=== PATIENT | male | born 1935 | race Caucasian/White ===

== ENCOUNTER 2016-12-13 23:31 | Emergency (ER) | payer MEDICARE ==
[~2016-12-13 23:31] MED LIST: ACETAMINOPHEN650 M1 PO; ANUCORT-HC25 MG/SUPP PR; ASPIRIN81 MG PO; AVODART0.5 MG PO; CARVEDILOL6.25 MG PO; CELEBREX PO; CLOPIDOGREL BIS75 MG PO; COZAAR PO; DIOVAN80 M1 PO; DOC-Q-LACE100 MG PO; FLUOROMETHOLONE15 ML OP; FLUOROMETHOLONE5 ML OP; HYDROCHLOROTHIA25 MG PO; HYDROCODON-ACE1 EAC7 PO; HYTRIN PO; IMDUR-ER30 M1 PO; LIPITOR40 MG PO; LOPID600 MG PO; LORTAB 10/500 T1 TAB PO; METAMUCIL; MILK OF MAGNESIA PO; MOBIC PO; NITROGLYGERIN0.4 MG SL; PROTONIX PO; TIMOPTIC2.5 ML OP; TYLENO PO; TYLENOL #3 PO; VIT B12 PO; XALATAN OP; [UNRECOGNIZED DRUG - OTHER] PO
== END 2016-12-14 02:05 | disposition home or self-care (01) ==
LOC: CED 23:31
DX: R04.0 Epistaxis (principal); I10 Essential (primary) hypertension; Z86.73 Personal history of transient ischemic attack (TIA), and cerebral infarction without residual deficits
CPT/HCPCS: 99283

== ENCOUNTER 2017-02-08 14:03 | Inpatient (IN) | payer MEDICARE ==
[~2017-02-08] VITALS: Ht 162.6 cm; Wt 79.2 kg
--- NOTE | ~2017-02-08 | DS ---
Unit #: [id number] #: [id number] Patient: FANTASMA PATEL [id number] [facility] [address] [place], [place] [address] [id number] I MR#: [id number] NAME: FANTASMA PATEL. ROOM: [facility] Age: 81 Sex: M Admission Date: 02/08/2017 : 1935 Discharge Date: 02/13/2017 Attending Physician: Mariluz Cramer M.D. Primary Care Physician: Tucker Biggs M.D. DISCHARGE SUMMARY ADMITTING PHYSICIAN Dr. Sanchez with [facility]. ADMITTING DIAGNOSES 1. Acute upper gastrointestinal bleed. 2. Macrocytic anemia. 3. Hypertension. 4. Hyperlipidemia. 5. Coronary artery disease. 6. History of cerebrovascular accident/transient ischemic attack. 7. Salivary gland malignancy. DISCHARGE DIAGNOSES 1. 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 2. Atrial fibrillation, coronary artery disease status post stent. 3. Dysphagia with moderate protein caloric malnutrition, status post percutaneous endoscopic gastrostomy tube. 4. Salivary gland cancer, status post resection, chemotherapy and radiation, stable. 5. Immobilization syndrome. 6. History of cerebrovascular accident and transient ischemic attack. 7. Hypertension. CONSULTS 1. Dr. Nitesh Paniagua with gastroenterology. 2. Dr. Michael Calles with [facility]. PROCEDURES EGD with argon plasma coagulation treatment for a gastric AVM. HISTORY OF PRESENT ILLNESS Mr. Patel is an 81-year-old white male with history of hypertension, coronary artery disease, salivary gland cancer where he has a PEG placed as well as undergone chemo, radiation, and resection who presented with a GI bleed. HOSPITAL COURSE The patient was admitted for evaluation of a GI bleed. He was monitored closely. His hemoglobin did drop down to 7.6. He did require 2 units of packed red cells. He also was seen by gastroenterology who took him for an EGD where he was found to have a gastric AVM that required coagulation treatment. Overall, post EGD patient has been stable. He has been on Unit #: [id number] #: [id number] Patient: FANTASMA PATEL Xarelto for anticoagulation for his atrial fibrillation and CVA. This has been stopped. He can resume anticoagulation in two weeks. Dr. Calles with [facility] evaluated the patient and he recommended that the patient switch from Xarelto to Eliquis but agreed that anticoagulation could be restarted in two weeks. Overall, patient has been stable in regards to his chronic medical problems. At this time, he will be evaluated by physical therapy, but the plan is for discharge home to resume his home medications. He will hold his anticoagulation again for two weeks and then restart his anticoagulation with Eliquis instead of Xarelto, and he will also be on PPI therapy twice daily. HOME MEDICATIONS 1. Fluorometholone drops to the left eye each morning. 2. Atorvastatin 80 mg per G tube at bedtime. 3. Coreg 6.25 mg per G tube b.i.d. 4. Timoptic to the left eye in the morning. 5. Docusate 10 mL per G tube b.i.d. 6. MiraLax 17 g per G tube daily. 7. He can resume his hydrochlorothiazide 25 mg per G tube daily. 8. He can do his Genteal eye drops to both eyes as needed. 9. He can resume his guaifenesin syrup per G tube three times a day as needed for mucus. 10. He can resume his Xalatan drops one drop to the left eye at bedtime. 11. Terazosin 5 mg per G tube at bedtime. 12. Ferrous sulfate 5 mL per G tube b.i.d. 13. Chlorhexidine 1 mL as needed for mouth care. 14. Multivitamin per G tube daily. 15. Isosorbide mononitrate 20 mg per G tube b.i.d. 16. Cholecalciferol 1000 units per PEG daily. 17. He can resume his pain medicine, oxycodone 5 mL per G tube as needed for pain. 18. He can resume his Timothy-Synephrine daily as needed for nosebleeds. 19. He can resume his Q-Tussin three times daily as needed for cough. 20. He can resume his Nystatin liquid that he was taking four times a day for sore throat. 21. He has been started on Protonix 40 mg per PEG b.i.d. 22. He will start Eliquis 2.5 mg per PEG b.i.d. to start on February 27, 2017 to replace Xarelto. DISCHARGE INSTRUCTIONS 1. He will be evaluated today by physical therapy to assess his baseline. 2. He will resume his home health services once discharged home. 3. He will follow up with Dr. Paniagua with gastroenterology in two to four weeks. 4. Followup with cardiology per their recommendations. 5. He is stable for discharge home today. Note: I have spent 30 minutes on this discharge. Dictated by... Juno Smith Unit #: [id number] #: [id number] Patient: FANTASMA PATEL TD: 02/14/2017 12:07 JOB #: [id number] DISCHARGE SUMMARY Page 1 of 1 X Mariluz Cramer DISCHARGE SUMMARY
--- NOTE | ~2017-02-08 | EKG ---
PATIENT: FANTASMA ECHEVARRIA UNIT #: [id number] Ventricular Rate: 80 BPM Atrial Rate: 72 BPM QRS Duration: 84 ms Q-T Interval: 398 ms QTC Calculation(Bezet): 459 ms Calculated R [place]: 17 degrees Calculated T [place]: 11 degrees Diagnosis Line: Atrial fibrillation Diagnosis Line: Abnormal ECG Diagnosis Line: When compared with ECG of 07-SEP-2016 15:00, Diagnosis Line: QT has lengthened Diagnosis Line: Confirmed by PAULA SIMMONS, NATALIA ([id number]) on Diagnosis Line: 02/10/2017 5:18:42 PM INTERPRETING MD: WANDA
--- NOTE | ~2017-02-08 | FU ---
[facility] Nutrition Therapy DATE: 02/14/17 Patient: FANTASMA ECHEVARRIA Physician: PRANAV Address: [address] [place] [address] Room/Bed: [address] [place] [address], Zip: [place] [address] Admit Date: 02/08/17 Date of : 35 Height: 5 4 Weight: 174 79.2 NUTRITION MONITORING/FOLLOW-UP: Reason: enteral nutrition follow-up 81 y/o male admitted for G-tube complaint, GI bleed Anthropometrics: ht: 5'6" wt: 174# (76 kg) BMI 28 (Weights stable) Labs: K+ 3.4, Ca++ 8.1, Alb 2.3 Meds: Klor-con, protonix, glucona, miralax, Vitamin D, NaCl I&O's: 3390/179 Skin: previously noted Estimated Nutrition Needs: 3146-6758 kcal (25-30 kcal/kg) 88-104 g protein (1.1-1.3 g/kg) fluids consistenw with kcals or per MD Assessment: Chart reviewed, events noted. Pt seen for enteral nutrition follow up. Pt has PEG tube and receives home tube feeds. Pt receives enteral nutrition support of Vital 1.5. RD sports management internship visited pt at bedside, pt's RN was also present. RN reported that last night at 12 A.M., the night RN turned off the pt's tubefeeds because the pt was having some stomach pain and gas. The RN is now re-starting the tubefeeds at a rate of 50 mL/hr and will advance them to goal of 60 mL/hr today as tolerated. RD will continue to follow. Dx: Inadequate oral intake r/t PMH AEB G-tube in place, pt receives home ENS. -ACTIVE Intervention: 1. Enteral nutrition Monitoring, Evaluation and Goals: 1. Enteral nutrition; once initiated, provide >80% total volume x 24 hours. -IN PROGRESS 2. Weights; prevent weight loss -MET 3. Labs; WNL -IN PROGRESS 4. GI; promote regular GI function -IN PROGRESS Monitor: -weights [facility] Nutrition Therapy DATE: 02/14/17 Patient: FANTASMA ECHEVARRIA Physician: PRANAV Address: [address] [place] [address] Room/Bed: [address] [place] [address], Zip: [place] [address] Admit Date: 02/08/17 Date of : 35 Height: 5 4 Weight: 174 79.2 -TF rate/residuals -Labs Recommendations: 1. Continue current enteral nutrition support of Vital 1.5 @ 60 mL/hr x 24 hours. This provides 2160 kcal, 97 g pro, 1094 mL free h20. Free h20 flushes per MD. 2. Continue to monitor for signs of enteral nutrition intolerance. RD will f/u per protocol as pt is at mild nutritional risk. Respectfully, JOELLE BENAVIDES, post graduate internship Stephie Lowery, RD, LD Food and Nutritional Services [facility] cc: client file
--- NOTE | ~2017-02-08 | CO ---
Unit #: [id number] #: [id number] Patient: FANTASMA ECHEVARRIA [id number] [facility]. [place], [place] [address] [id number] I MR#: [id number] NAME: FANTASMA ECHEVARRIA ROOM: 553 Age: 81 Sex: M Admission Date: 02/08/2017 : 1935 Attending Physician: Mandy Mcclendon M.D. Primary Care Physician: Tucker Biggs M.D. CONSULTATION REPORT REASON FOR CONSULTATION Anticoagulation management. HISTORY OF PRESENT ILLNESS This is an 81-year-old white male, who is known to Dr. Zimmerman, who has a history of coronary artery disease where he underwent cardiac catheterization in 2014 and was found to have three-vessel coronary artery disease. At that time, the LAD stenosis was 99%, where he underwent angioplasty and stent placement. He has been treated medically since. 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 He has also undergone chemo and radiation therapy. Because of dysphagia, he had a PEG tube placed in October as well. Prior to his surgery, the patient was found to be in atrial fibrillation with controlled ventricular rate, it was found on office exam in September. He was started on Xarelto, but it was held prior to surgery and restarted during his hospitalization in October. He has been in his usual state of health without any symptoms except for a complaint of knee pain. On Friday, his was feeding him through the G-tube and noted pink fluid initially, but later to be bloody. He had no abdominal pain, nausea, or vomiting. He has always had a dark stools according to the . She brought him to the emergency room for evaluation, where he was found to have a hemoglobin of 9.0, but dropped later to 7.6. He underwent EGD and was found to have active AVM bleed which was cauterized with APC and new G-tube was placed. He remains in atrial fibrillation in a controlled ventricular rate. PAST MEDICAL HISTORY 1. Cardiac catheterization on 04/02/2015 showed left main normal. LAD 99%. Diagonal branches are normal. Circumflex artery, codominant vessel with third marginal branch 80% to 90% midvessel. PDA of the left circumflex artery 75% at its origin followed by another 80% stenosis. Mid right coronary artery codominant vessel with distal long segment stenosis of 75%. PDA of the right coronary artery normal. Ejection fraction of 50% to 55%. 2. Status post PCI with drug-eluting stent to the proximal LAD. 3. Hypertension. 4. Hyperlipidemia. 5. Atrial fibrillation, on anticoagulation with Xarelto. 6. Peripheral vascular disease, status post left carotid endarterectomy. 7. TIA/CVA. 8. Dementia. 9. Anemia. Unit #: [id number] #: [id number] Patient: FANTASMA ECHEVARRIA 10. Squamous cell submandibular carcinoma, status post resection with chemo and radiation therapy. 11. Dysphagia, status post PEG placement. 12. Former smoker. PAST SURGICAL HISTORY 1. As stated above. 2. Eye surgery. 3. Bilateral knee surgery. 4. Carpal tunnel release. 5. Cholecystectomy. SOCIAL HISTORY The patient is . He quit smoking in 1965. Denies illicit drug or alcohol use. FAMILY HISTORY Mother had a permanent pacemaker. ALLERGIES No known drug allergies. HOME MEDICATIONS Docusate sodium 10 mL b.i.d., carvedilol 6.25 mg b.i.d., isosorbide mononitrate 20 mg b.i.d., ferrous sulfate 5 mL b.i.d., multivitamin 1 tablet daily, cholecalciferol one tablet daily, famotidine 20 mg daily, hydrochlorothiazide 25 mg daily, MiraLax 17 g daily, oxycodone 5 mL p.r.n., minocycline b.i.d., aspirin 81 mg daily, atorvastatin 80 mg q.h.s., terazosin 5 mg daily, Xarelto 20 mg daily, Timothy-Synephrine nasal spray p.r.n., Q-Tussin t.i.d. p.r.n., chlorhexidine 1 mL p.r.n., guaifenesin t.i.d. p.r.n., fluorometholone to the left eye daily, Timoptic 1 drop to left eye q.a.m., latanoprost 1 drop to the left eye q.h.s., hypromellose one drop p.r.n. REVIEW OF SYSTEMS Unable to obtain, because the patient is drowsy at the time of the interview. PHYSICAL EXAMINATION VITAL SIGNS: Blood pressure 132/61, heart rate 94, temperature 98.1, BMI 30. GENERAL: This is an 81-year-old well-developed white male, who is in no acute distress. NEUROLOGIC: He awakens briefly, but falls fast asleep. There are no obvious focal weaknesses. NECK: Trachea is midline. No thyromegaly or lymphadenopathy. No jugular venous distention. HEART: S1 and S2. Heart sounds are normal. No murmurs. No rubs or clicks. Irregularly irregular rhythm. LUNGS: Clear without rales, rhonchi, or wheezing. ABDOMEN: Soft and nontender with bowel sounds are present. EXTREMITIES: Without leg edema. SKIN: Noted for scarring to the left neck and chest. DIAGNOSTIC STUDIES LABORATORY RESULTS: Glucose 91, BUN 43, creatinine 0.7, sodium 140, potassium 4.1. White count 7.2, hemoglobin 7.6, hematocrit 23.2, and platelet count 191. Unit #: [id number] #: [id number] Patient: FANTASMA ECHEVARRIA CARDIOVASCULAR STUDIES: EKG; rhythm strip shows atrial fibrillation in a controlled ventricular rate. IMPRESSION 1. Acute gastrointestinal bleed secondary to arteriovenous malformations, status post cautery cauterization with argon plasma coagulation. 2. Blood loss anemia. 3. History of squamous cell mandibular cancer, status post radiation and chemotherapy and resection. 4. Dysphagia, status post percutaneous endoscopic gastrostomy. 5. Moderate coronary artery disease with history of percutaneous coronary intervention and stent to the left anterior descending in 2014. 6. Persistent atrial fibrillation in a controlled ventricular rate. 7. Hypertension. 8. Hyperlipidemia. 9. History of cerebrovascular accident/transient ischemic attack. PLAN 1. Cardiology was consulted for anticoagulation management. The patient has a CHADS2-Vasc score of 4 and need long-term anticoagulation for stroke prevention. Because of his GI bleed and anemia, withhold Xarelto for now. This has been discussed with the patient. 2. We will determine if the patient remains a candidate for long-term anticoagulation prior to discharge. 3. We will follow the patient with you. Thank you for allowing us to assist with this patient's care. Dictated by... Mihir Garcia A.P.R.N. ANGE/lucrecia TD: 02/11/2017 07:42 JOB #: [id number] CONSULTATION REPORT Page 1 of 1 X Mihir Garcia APRN CONSULTATION REPORT
--- NOTE | ~2017-02-08 | OR ---
Unit #: [id number] #: [id number] Patient: FANTASMA ECHEVARRIA [id number] [facility] [address] [place], [place] [address] [id number] I MR#: [id number] NAME: FANTASMA ECHEVARRIA. ROOM: 553 Date of Procedure: 02/09/2017 Admission Date: 02/08/2017 Surgeon: Nitesh Paniagua M.D. : 1935 Attending Physician: Mandy Mcclendon M.D. Primary Care Physician: Tucker Biggs M.D. OPERATIVE REPORT PROCEDURES PERFORMED Esophagogastroduodenoscopy with argon plasma coagulation treatment. INDICATIONS FOR PROCEDURE An 81-year-old gentleman, who presented with upper GI bleeding and anemia of acute blood loss, undergoing evaluation with upper endoscopy. MEDICATIONS Monitored anesthesia. POSTOPERATIVE FINDINGS 1. Esophagus appears normal. 2. Active oozing of blood from an AVM in the stomach along the line of the body and antrum. APC was done for cautery. 3. There was significant leaking around the G-tube. A new 20-Kazakh replacement G-tube was placed. 4. No other source of bleeding was seen. 5. Duodenal bulb and distal duodenum were normal. PLAN Continue watch for any further bleeding. Continue PPI therapy. Transfuse as necessary. DESCRIPTION OF PROCEDURE The patient was explained of the procedure, risks, and benefits along with risks and benefits of anesthesia. He was brought to the endoscopy room. Propofol anesthesia was given. Bite block was placed. The scope was passed down the mouth into the esophagus, stomach, duodenum, and distal duodenum. Findings as described. Cautery carried out successfully for the AVM. The bleeding was stopped. Extensive lavaging was done. G-tube was replaced. Gently, I pulled the scope out of the patient's mouth. He tolerated the procedure well. No major complications were seen. Dictated by... Juno Desir/lucrecia TD: 02/09/2017 11:10 JOB #: [id number] Unit #: [id number] #: [id number] Patient: FANTASMA ECHEVARRIA OPERATIVE REPORT Page 1 of 1 X Nitesh Paniagua MD OPERATIVE NOTE
--- NOTE | ~2017-02-08 | HP ---
Unit #: [id number] #: [id number] Patient: FANTASMA ECHEVARRIA [id number] [place], [place] [address] [id number] I MR#: [id number] NAME: FANTASMA ECHEVARRIA ROOM: [facility] Age: 81 Sex: M Admission Date: 02/08/2017 : 1935 Attending Physician: Mandy Mcclendon M.D. Primary Care Physician: Tucker Biggs M.D. HISTORY AND PHYSICAL CHIEF COMPLAINT G-tube complaint. HISTORY OF PRESENT ILLNESS The patient is an 81-year-old male with a past medical history of hypertension, hyperlipidemia, coronary artery disease, cerebrovascular accident/TIA, chronic anticoagulation, peripheral vascular disease, cognitive impairment, salivary gland malignancy who presented to the emergency department for evaluation of the above. The patient was apparently in his usual state of health until the morning of admission when his noticed blood from the G-tube. The patient has no complaint. He denies any cough. No fever, no shortness of breath. He does have pain in the left neck area where he had surgery related to salivary gland malignancy. He is receiving tube feeds. He has had loose stool since being on tube feeds. He also states that his stool has been dark since that time. In the emergency department, initial pulse and blood pressure were 84 and 148/62 respectively. Hemoglobin is 9. He was given 40 mg of Protonix in the emergency department. He is being admitted to [facility] for evaluation and further treatment. PAST MEDICAL HISTORY 1. Admission to [facility] in October of 2016 for salivary gland malignancy. He underwent G-tube placement at that time. 2. Admission to [facility] March 31, 2015, for TIA. He underwent cardiac catheterization and carotid endarterectomy during that admission. 3. Cerebrovascular accident/transient ischemic attacks. 4. Chronic anticoagulation with Xarelto. 5. Coronary artery disease, status post cardiac stent placement, followed by Dr. Calles. 6. Peripheral vascular disease, status post left carotid endarterectomy. 7. Hypertension. 8. Hyperlipidemia. 9. Cognitive impairment. 10. Salivary gland malignancy, followed by the [facility], status post radiation and chemotherapy with last chemotherapy and radiation being two to three weeks ago. He is status post PEG tube placement. PAST SURGICAL HISTORY 1. Cardiac catheterization April 02, 2015, showed 99% stenosis of the Unit #: [id number] #: [id number] Patient: FANTASMA ECHEVARRIA proximal LAD at the ostium, 80% stenosis of the third marginal branch of the circumflex, 80% stenosis of the posterior descending branch of the right circumflex coronary artery, 75% stenosis of the distal right coronary artery. He underwent stent insertion at that time. Ejection fraction was 50% to 55%. 2. Cardiac stent placement. 3. Eye surgery. 4. Bilateral knee surgery. 5. Colonoscopy. 6. Carpal tunnel. 7. Carotid endarterectomy. 8. Surgery related to salivary gland malignancy. 9. G-tube placement. SOCIAL HISTORY The patient lives with his . He quit smoking in 1965. There is no alcohol use. FAMILY HISTORY Notable for his mother having a pacemaker. ALLERGIES No known allergies. MEDICATIONS Home medications will need to be reviewed and verified. Home medications include Xarelto. DIAGNOSTIC STUDIES LABORATORY: Complete blood count notable for hemoglobin and hematocrit of 9 and 27.3 respectively. INR is 1.1. Additional labs are pending. PHYSICAL EXAMINATION VITAL SIGNS: Temperature is 98.7, pulse 84, respirations 16, blood pressure 148/62. Oxygen saturation is 97% on room air. GENERAL: The patient is a male who is awake and alert, in no acute distress. HEENT: The head is atraumatic. Mucous membranes are moist. NECK: The patient has surgical incision in left neck that is healing. The skin is indurated and erythematous in that area consistent with recent radiation. CARDIOVASCULAR: Regular rate and rhythm. LUNGS: Clear to auscultation bilaterally with no increased work of breathing. ABDOMEN: Soft, nontender. He does have a G-tube in place. There is bright red blood within the tube. NEURO: The patient is awake and alert. He is oriented to person and place. He is moving all extremities. PSYCH: Mood and affect are normal. The patient is cooperative. SKIN: Skin of examined areas is warm and dry. ASSESSMENT The patient is an 81-year-old male with: 1. Upper gastrointestinal bleed: The patient received 40 mg of Protonix in the emergency department. 2. Microcytic anemia: The patient's hemoglobin is 9. It was 12.1 on September 07, 2016. 3. Hypertension. Unit #: [id number] #: [id number] Patient: FANTASMA ECHEVARRIA 4. Hyperlipidemia. 5. Coronary artery disease, status post stent placement. 6. History of cerebrovascular accident/transient ischemic attack. 7. Chronic anticoagulation with Xarelto. 8. Peripheral vascular disease, status post carotid endarterectomy. 9. Cognitive impairment. The patient is at baseline per family. 10. Salivary gland malignancy, status post surgery, radiation and chemotherapy: His last radiation and chemotherapy were two to three weeks ago. He is followed by the [facility]. PLAN 1. Admit to intermediate level for observation. 2. NPO. 3. G-tube to low wall suction. 4. Normal saline at 25 mL/hour. 5. Hemoglobin and hematocrit q.6 hours. Will plan to transfuse for hemoglobin less than 8 due to history of coronary artery disease. 6. Iron studies, B12 and folate. 7. Protonix 40 mg IV daily. 8. Consult Dr. Paniagua regarding GI bleed. 9. Get records from [facility]. 10. Repeat labs in the morning. 11. SCDs for DVT prophylaxis. Dictated by Deidra Sanchez M.D. MARY/raheel TD: 02/09/2017 07:53 JOB #: [id number] HISTORY AND PHYSICAL Page 1 of 1 X Deidra Sanchez MD HISTORY AND PHYSICAL
--- NOTE | ~2017-02-08 | CO ---
Unit #: [id number] #: [id number] Patient: FANTASMA PATEL [id number] [address] [address] [id number] I MR#: [id number] NAME: FANTASMA PATEL. ROOM: [facility] Age: 81 Sex: M Admission Date: 02/08/2017 : 1935 Attending Physician: Mandy Mcclendon M.D. Primary Care Physician: Tucker Biggs M.D. Consultation Date: 02/09/2017 CONSULTATION REPORT REASON FOR CONSULTATION GI bleeding. HISTORY OF PRESENTING ILLNESS Mr. Patel is an 81-year-old pleasant gentleman, was admitted last night with complaints of blood from the G-tube and around the G-tube. Black stool was also noted. The patient has not had any previous history of GI bleeding. He has been on Xarelto. 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 He finished chemo and radiation 2 weeks ago. PAST MEDICAL HISTORY Significant for hypertension; hyperlipidemia; salivary gland malignancy; CVA; coronary artery disease, Xarelto therapy. SOCIAL HISTORY Nonsmoker, nonalcoholic. FAMILY HISTORY Noncontributory. ALLERGIES None. MEDICATIONS List reviewed and includes Xarelto, the last dose was 36 to 48 hours ago. DIAGNOSTIC STUDIES LABORATORY RESULTS: The patient's hemoglobin 8.8 this morning, was 9 yesterday, baseline of 12. INR normal. Other labs are unremarkable. PHYSICAL EXAMINATION VITAL SIGNS: Stable. Afebrile. GENERAL: No acute distress. HEENT: Pupils equal and reactive. Sclerae anicteric. Oral mucosa moist. NECK: No JVD. No lymphadenopathy. CHEST: Few scattered rhonchi. CARDIOVASCULAR: Regular rate and rhythm. No murmurs. ABDOMEN: G-tube in place connected to gravity bag. A lot of fresh blood in the bag itself. Abdomen was otherwise benign with no evidence of any acute abdomen. EXTREMITIES: Without clubbing, cyanosis, or edema. Unit #: [id number] #: [id number] Patient: FANTASMA PATEL NEUROLOGIC: Awake, alert, and oriented. SKIN: Warm and dry. ASSESSMENT 1. The patient with significant upper gastrointestinal bleeding, anemia of acute blood loss. 2. Xarelto therapy. 3. Salivary gland malignancy, status post G-tube placement. PLAN PPI therapy. Watch H and H transfuse as necessary. I will need an upper endoscopy urgently for evaluation and possible intervention. Risks and benefits were discussed with the patient's family and they were agreeable. Plan to do an endoscopy soon. Thank you, Dr. Sanchez for this interesting consult. We will follow along. Dictated by... Juno Desir/lucrecia TD: 02/09/2017 12:56 JOB #: [id number] CONSULTATION REPORT Page 1 of 1 X Nitesh Paniagua MD X CONSULTATION REPORT
--- NOTE | ~2017-02-08 | DS ---
Unit #: [id number] #: [id number] Patient: FANTASMA ECHEVARRIA [id number] [address] [address] [id number] I MR#: [id number] NAME: FANTASMA ECHEVARRIA ROOM: [facility] Age: 81 Sex: M Admission Date: 02/08/2017 : 1935 Discharge Date: 02/13/2017 Attending Physician: Mairluz Cramer M.D. Primary Care Physician: Tucker Biggs M.D. DISCHARGE SUMMARY ADDENDUM Patient was evaluated by physical therapy who felt that he would benefit from subacute rehab as he was not at his baseline mobility. At this point, he is more debilitated than prior to admission and would benefit from physical therapy and occupational therapy in a skilled setting. Also, Dr. Paniagua has recommended that patient be on Protonix once a day, so Protonix 40 mg per PEG tube once daily as opposed to b.i.d. as was previously dictated in the discharge medications. Therefore, patient's discharge disposition is that he will be discharged to a nursing home facility upon bed availability and discharge medications are what was dictated on the original discharge summary with the exception that his Protonix will be 40 mg per PEG tube once daily. Dictated by... Juno Smith/godfrey TD: 02/14/2017 12:27 JOB #: [id number] DISCHARGE SUMMARY Page 1 of 1 X Mariluz Cramer DISCHARGE SUMMARY
--- NOTE | ~2017-02-08 | A ---
[facility] DATE: 02/10/17 Patient: FANTASMA ECHEVARRIA Physician: PRANAV Address: [address] [place] [address] Room/Bed: [address] [place] [address], Zip: [place] [address] Admit Date: 02/08/17 Date of : [birth year] Height: 5 4 Weight: 175 79.5 NUTRITIONAL ASSESSMENT: REASON: CONSULT RE: ENTERAL NUTRITION SUPPORT, ALSO ONE NUTRITION RISK PT RE: ENTERAL NUTRITION PT IS 81 Y.O. MALE ADMITTED FOR G-TUBE COMPLAINT, GI BLEED PMH: SALIVARY GLAND MALIGNANCY S/P G-TUBE PLACEMENT (10/18/16), CHEMO & RADIATION, CVA, PVD, HTN, HLD, CAD, BLIND (R) EYE, COGNITIVE IMPAIRMENT Anthropometrics: 5'6" (PER FAMILY), WT: 175# (80 KG), BMI: 28.2 Labs: BUN: 43, CA+: 8.3, ALB: 2.4, AST: 45 Meds: VITAMIN D, PROTONIX, MIRALAX, FERROUS GLUCONATE, FUROSEMIDE, NACL I/O & Bowel function: 1305/778, 2 BMs NOTED Skin Integrity: SURGICAL INCISION CHEST NOTED; G-TUBE IN PLACE Estimated Nutrition Needs: 5224-1458 KCAL (25-30 KCAL/KG BW) 88-104 G PRO (1.1-1.3 G PRO/KG BW) FLUIDS CONSISTENT W/KCAL NEEDS OR MANAGE PER MD Assessment: CHART REVIEWED AND EVENTS NOTED. PT SEEN FOR ENTERAL NUTRITION SUPPORT ASSESSMENT. PT ADMITTED FOR C/O BLOOD AROUND AND IN THE G-TUBE. PT ASLEEP AT TIME OF VISIT. RD SPOKE TO FAMILY IN ROOM WHO REPORT PT RECEIVED ENTERAL NUTRITION SUPPORT OF PIVOT 1.5 YULISA AT HOME VIA G-TUBE 2' PMH. FAMILY ADDS THAT PT ALSO ABLE TO EAT BY MOUTH, NOTES SOFT FOODS AND THICKENED LIQUIDS. FAMILY DENIES ANY RECENT WEIGHT LOSS- NOTES WEIGHTS HAVE BEEN STABLE. RD TO FOLLOW. FAMILY REPORTED NO DIET QUESTIONS AT THIS TIME. OF NOTE, [facility] DOES NOT PROVIDE PIVOT 1.5 YULISA. VITAL 1.5 IS BEST ALTERNATIVE. Dx: INADEQUATE ORAL INTAKE R/T PMH AEB G-TUBE IN PLACE, PT RECEIVES HOME ENS. Intervention: 1. NPO 2. RD CONSULT Monitoring, Evaluation and Goals: 1. ENTERAL NUTRITION; ONCE INITIATED, PROVIDE >80% TOTAL VOLUME X 24 HOURS 2. WEIGHTS; PREVENT WEIGHT LOSS 3. LABS; WNL 4. GI; PROMOTE REGULAR GI FUNCTION [facility] DATE: 02/10/17 Patient: FANTASMA ECHEVARRIA Physician: PRANAV Address: [address] [place] [address] Room/Bed: [address] [place] [address], Zip: [place] [address] Admit Date: 02/08/17 Date of : 35 Height: 5 4 Weight: 175 79.5 MONITOR: -WEIGHTS -TF RATE/RESIDUALS -LABS Recommendations: 1. ONCE MEDICALLY FEASIBLE, BEGIN ALTERNATIVE NUTRITION SUPPORT OF VITAL 1.5 @ 20 ML/HR, ADVANCE 10 ML q 6 HOURS TO GOAL RATE OF 60 ML/HR -PROVIDES 2160 KCAL, 97 G PRO, 1094 ML FREE H20 ADD FREE H20 FLUSHES OF 180 ML q 4 HOURS TO MEET PT'S CURRENT ESTIMATED FLUID NEEDS OR MANAGE PER MD 2. 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 MONITOR FOR SIGNS OF ENTERAL NUTRITION SUPPORT INTOLERANCE RD WILL F/U PER PROTOCOL PT IS MILDLY COMPROMISED Respectfully, CHANTELLE LEE MS, RD, LD [facility] cc: client file
[2017-02-08 15:32] LABS: BASOPHIL% 0.3 % (0-2.5); EOSINOPHIL# 0.2 X10e3 (0-0.7); EOSINOPHIL% 2.4 % (0.0-7.0); HEMATOCRIT 27.3 % (38.0-50.0); LYMPHOCYTE# 1.4 X10e3 (1.0-3.5); LYMPHOCYTE% 13.9 % (17.0-45.0); MEAN CELL VOLUME 81.4 FL (83-96); MEAN CORPUSCULAR HEMOGLOBIN 26.9 PG (28-34); MONOCYTE# 1.1 X10e3 (0-1.0); MONOCYTE% 11.3 % (3.0-12.0); NEUTROPHIL# 7.3 X10e3 (1.5-7.1); NEUTROPHIL% 72.1 % (40-75); PLATELET COUNT 194 X10e3 (140-420); RED BLOOD COUNT 3.36 X10e (3.90-5.60); RED CELL DISTRIBUTION WIDTH 20.1 % (11.0-15.5); WHITE BLOOD COUNT 10.2 X10e3 (4.0-10.5)
[2017-02-08 15:46] LABS: INR 1.1; PARTIAL THROMBOPLASTIN TIME 25.4 SECONDS (23.5-31.3)
[2017-02-08 15:47] LABS: DIFF IND NO
[2017-02-08 16:58] LABS: ALBUMIN SERUM 2.7 g/dL (3.5-5.0); BILIRUBIN, DIRECT 0.1 mg/dL (0.0-0.2); BILIRUBIN,INDIRECT 0.8 mg/dL (0.0-0.9); BILIRUBIN,TOTAL 0.9 mg/dL (0.2-2.0); BUN/CREATININE RATIO 93.75; CALCIUM SERUM 8.5 mg/dL (8.4-10.2); CREATININE SERUM 0.8 mg/dL (0.6-1.4); GLOM FILT RATE Estimated 83.8 mL/min (>60); POTASSIUM 4.1 mmol/L (3.5-5.1); PROTEIN TOTAL SERUM 7.1 g/dL (6.0-8.3)
[2017-02-08 17:48] LABS: IRON SERUM 22 ug/dL (45-182); TOTAL IRON BINDING CAPACITY 257 ug/dL (252-460); TRANSFERRIN 183 mg/dL (180-329); TRANSFERRIN SATURATION 9 % (20-50)
[2017-02-08 18:08] LABS: FOLATE (FOLIC ACID) >23.2 ng/mL (>5.8)
[2017-02-08 22:00] LABS: HEMATOCRIT 24.5 % (38.0-50.0); HEMOGLOBIN 8.2 gm/dL (13.0-16.0)
[2017-02-09] MEDS ORDERED: SILACE60 MG/15 M GT (02:08)
[2017-02-09] MEDS ORDERED: COREG6.25 MG PO (02:08)
[2017-02-09] MEDS ORDERED: ISOSORBIDE MONO20 M1 PO (02:09)
[2017-02-09] MEDS ORDERED: FERROUS SULFATE GT (02:10)
[2017-02-09] MEDS ORDERED: MULTIVITAMINS1 EAC4 GT (02:12)
[2017-02-09] MEDS ORDERED: CHOLECALCIFEROL (02:13)
[2017-02-09] MEDS ORDERED: FAMOTIDINE20 MG GT (02:14)
[2017-02-09] MEDS ORDERED: HYDROCHLOROTHIA25 MG GT (02:14)
[2017-02-09] MEDS ORDERED: MIRALAX17 GM GT (02:15)
[2017-02-09] MEDS ORDERED: OXYCODONE GT (02:16)
[2017-02-09] MEDS ORDERED: MINOCIN PO (02:17)
[2017-02-09] MEDS ORDERED: ATORVASTATIN CA80 MG PO (02:18)
[2017-02-09] MEDS ORDERED: ASPIRIN81 MG PO (02:18)
[2017-02-09] MEDS ORDERED: HYTRIN GT (02:19)
[2017-02-09] MEDS ORDERED: XARELTO20 MG GT (02:20)
[2017-02-09] MEDS ORDERED: NEO-SYNEPHRINE (02:22)
[2017-02-09] MEDS ORDERED: Q-TUSSIN PO (02:23)
[2017-02-09] MEDS ORDERED: [UNRECOGNIZED DRUG - MIXTURE] PO (02:25)
[2017-02-09] MEDS ORDERED: CHLORHEXIDINE FL1 ML PO (02:26)
[2017-02-09] MEDS ORDERED: ADULT TUSS100 MG/5 M GT (02:28)
[2017-02-09] MEDS ORDERED: FLUOROMETHOLONE5 M1 OS (02:30)
[2017-02-09] MEDS ORDERED: TIMOPTIC5 ML OS (02:31)
[2017-02-09] MEDS ORDERED: LATANOPROST2.5 ML OS (02:32)
[2017-02-09] MEDS ORDERED: GENTEAL15 ML OU (02:32)
[2017-02-09 02:45] LABS: HEMATOCRIT 25.6 % (38.0-50.0); HEMOGLOBIN 8.4 gm/dL (13.0-16.0); MEAN CELL VOLUME 80.7 FL (83-96); MEAN CORPUSCULAR HEMOGLOBIN 26.5 PG (28-34); MEAN CORPUSCULAR HGB CONC 32.9 g/dL (30-36); MEAN PLATELET VOLUME 7.8 FL (6.5-11.5); RED BLOOD COUNT 3.18 X10e (3.90-5.60); RED CELL DISTRIBUTION WIDTH 20.2 % (11.0-15.5); WHITE BLOOD COUNT 8.8 X10e3 (4.0-10.5)
[2017-02-09 02:58] LABS: INR 1.1; PROTHROMBIN TIME (PATIENT) 12.2 SECONDS (10.0-11.7)
[2017-02-09 03:53] LABS: ALBUMIN SERUM 2.6 g/dL (3.5-5.0); BILIRUBIN,TOTAL 1.1 mg/dL (0.2-2.0); BUN/CREATININE RATIO 91.25; CALCIUM SERUM 8.4 mg/dL (8.4-10.2); CREATININE SERUM 0.8 mg/dL (0.6-1.4); GLOM FILT RATE Estimated 83.8 mL/min (>60); POTASSIUM 4.4 mmol/L (3.5-5.1); PROTEIN TOTAL SERUM 6.5 g/dL (6.0-8.3)
[2017-02-09 08:32] LABS: HEMATOCRIT 26.4 % (38.0-50.0); HEMOGLOBIN 8.6 gm/dL (13.0-16.0)
[2017-02-09 15:28] LABS: HEMATOCRIT 25.9 % (38.0-50.0); HEMOGLOBIN 8.5 gm/dL (13.0-16.0)
[2017-02-09 18:58] LABS: HEMATOCRIT 25.5 % (38.0-50.0); HEMOGLOBIN 8.2 gm/dL (13.0-16.0)
[2017-02-10 08:03] LABS: HEMATOCRIT 23.2 % (38.0-50.0); HEMOGLOBIN 7.6 gm/dL (13.0-16.0); MEAN CELL VOLUME 82.2 FL (83-96); MEAN CORPUSCULAR HEMOGLOBIN 26.9 PG (28-34); MEAN CORPUSCULAR HGB CONC 32.7 g/dL (30-36); MEAN PLATELET VOLUME 7.5 FL (6.5-11.5); RED BLOOD COUNT 2.82 X10e (3.90-5.60); RED CELL DISTRIBUTION WIDTH 20.3 % (11.0-15.5); WHITE BLOOD COUNT 7.2 X10e3 (4.0-10.5)
[2017-02-10 09:15] LABS: ALBUMIN SERUM 2.4 g/dL (3.5-5.0); BUN/CREATININE RATIO 61.42; CALCIUM SERUM 8.3 mg/dL (8.4-10.2); CREATININE SERUM 0.7 mg/dL (0.6-1.4); GLOM FILT RATE Estimated 88.5 mL/min (>60); POTASSIUM 4.1 mmol/L (3.5-5.1); PROTEIN TOTAL SERUM 5.8 g/dL (6.0-8.3)
[2017-02-11 06:40] LABS: HEMATOCRIT 25.9 % (38.0-50.0); HEMOGLOBIN 8.6 gm/dL (13.0-16.0); MEAN CORPUSCULAR HEMOGLOBIN 27.6 PG (28-34); MEAN CORPUSCULAR HGB CONC 33.3 g/dL (30-36); MEAN PLATELET VOLUME 7.4 FL (6.5-11.5); RED BLOOD COUNT 3.12 X10e (3.90-5.60); RED CELL DISTRIBUTION WIDTH 18.2 % (11.0-15.5); WHITE BLOOD COUNT 8.4 X10e3 (4.0-10.5)
[2017-02-11 07:02] LABS: BUN/CREATININE RATIO 44.28; CALCIUM SERUM 8.3 mg/dL (8.4-10.2); CREATININE SERUM 0.7 mg/dL (0.6-1.4); GLOM FILT RATE Estimated 88.5 mL/min (>60); POTASSIUM 3.5 mmol/L (3.5-5.1)
[2017-02-12 06:11] LABS: HEMATOCRIT 24.8 % (38.0-50.0); HEMOGLOBIN 8.2 gm/dL (13.0-16.0); MEAN CELL VOLUME 83.9 FL (83-96); MEAN CORPUSCULAR HEMOGLOBIN 27.9 PG (28-34); MEAN CORPUSCULAR HGB CONC 33.2 g/dL (30-36); MEAN PLATELET VOLUME 7.4 FL (6.5-11.5); RED BLOOD COUNT 2.96 X10e (3.90-5.60); RED CELL DISTRIBUTION WIDTH 18.3 % (11.0-15.5); WHITE BLOOD COUNT 6.7 X10e3 (4.0-10.5)
[2017-02-12 07:03] LABS: ALBUMIN SERUM 2.4 g/dL (3.5-5.0); BILIRUBIN,TOTAL 0.9 mg/dL (0.2-2.0); CALCIUM SERUM 8.2 mg/dL (8.4-10.2); CREATININE SERUM 0.7 mg/dL (0.6-1.4); GLOM FILT RATE Estimated 88.5 mL/min (>60); POTASSIUM 3.4 mmol/L (3.5-5.1); PROTEIN TOTAL SERUM 6.2 g/dL (6.0-8.3)
[2017-02-13 05:22] LABS: BASOPHIL% 0.3 % (0-2.5); EOSINOPHIL# 0.3 X10e3 (0-0.7); EOSINOPHIL% 3.7 % (0.0-7.0); HEMATOCRIT 25.4 % (38.0-50.0); HEMOGLOBIN 8.4 gm/dL (13.0-16.0); LYMPHOCYTE# 1.4 X10e3 (1.0-3.5); LYMPHOCYTE% 19.1 % (17.0-45.0); MEAN CELL VOLUME 83.4 FL (83-96); MEAN CORPUSCULAR HEMOGLOBIN 27.6 PG (28-34); MEAN CORPUSCULAR HGB CONC 33.1 g/dL (30-36); MEAN PLATELET VOLUME 7.4 FL (6.5-11.5); MONOCYTE# 0.6 X10e3 (0-1.0); MONOCYTE% 8.1 % (3.0-12.0); NEUTROPHIL# 4.9 X10e3 (1.5-7.1); NEUTROPHIL% 68.8 % (40-75); PLATELET COUNT 188 X10e3 (140-420); RED BLOOD COUNT 3.04 X10e (3.90-5.60); RED CELL DISTRIBUTION WIDTH 18.6 % (11.0-15.5); WHITE BLOOD COUNT 7.1 X10e3 (4.0-10.5)
[2017-02-13 05:29] LABS: DIFF IND NO
[2017-02-13 05:47] LABS: ALBUMIN SERUM 2.3 g/dL (3.5-5.0); BILIRUBIN,TOTAL 1.2 mg/dL (0.2-2.0); BUN/CREATININE RATIO 22.85; CALCIUM SERUM 8.1 mg/dL (8.4-10.2); CREATININE SERUM 0.7 mg/dL (0.6-1.4); GLOM FILT RATE Estimated 88.5 mL/min (>60); POTASSIUM 3.4 mmol/L (3.5-5.1); PROTEIN TOTAL SERUM 6.2 g/dL (6.0-8.3)
[2017-02-13] MEDS ORDERED: PROTONIX PO (12:49)
[2017-02-13] MEDS ORDERED: ELIQUIS2.5 MG (12:50)
[2017-02-13] MEDS ORDERED: ELIQUIS2.5 MG PO (14:28)
== END 2017-02-15 09:17 | DRG 378 ==
LOC: CED 14:03 → CEDOF 16:40 → C5B 16:40 → CED 16:40 → C5B 16:40 → CEDOF 17:17 → CED 17:17 → C5B 02-09 00:15 → CEDOF 02-09 00:15 → C5B 02-09 07:41
PROVIDERS: Emergency Medicine; Family Medicine; Internal Medicine
PROC: 0D568ZZ Destruction of Stomach, Via Natural or Artificial Opening Endoscopic (ICD-10-PCS; principal; 2017-02-09 09:45)
PROC: 0D20XUZ Change Feeding Device in Upper Intestinal Tract, External Approach (ICD-10-PCS; 2017-02-09 09:45)
PROC: 30233N1 Transfusion of Nonautologous Red Blood Cells into Peripheral Vein, Percutaneous Approach (ICD-10-PCS; 2017-02-10)
DX: K31.811 Angiodysplasia of stomach and duodenum with bleeding (principal); D62 Acute posthemorrhagic anemia; I48.1 Persistent atrial fibrillation; K94.21 Gastrostomy hemorrhage; F03.90 Unspecified dementia, unspecified severity, without behavioral disturbance, psychotic disturbance, mood disturbance, and anxiety; R13.10 Dysphagia, unspecified; I10 Essential (primary) hypertension; E78.5 Hyperlipidemia, unspecified; I25.10 Atherosclerotic heart disease of native coronary artery without angina pectoris; Z86.73 Personal history of transient ischemic attack (TIA), and cerebral infarction without residual deficits; Z79.01 Long term (current) use of anticoagulants; I73.9 Peripheral vascular disease, unspecified; C08.0 Malignant neoplasm of submandibular gland; Z87.891 Personal history of nicotine dependence; Z90.49 Acquired absence of other specified parts of digestive tract; M62.3 Immobility syndrome (paraplegic)
CPT/HCPCS: 36415; 80048; 80053; 80076; 82607; 82728; 82746; 83540; 83550; 85014; 85018; 85025; 85027; 85610; 85730; 86850; 86900; 86901; 86923; 93005; 96374; 97110; 97116; 97163; 97530; 99285; C9113; G8978-GP; G8979-GP; J1940; J2250; J3010; P9016